=== PATIENT | female | born 1950 | race Caucasian/White ===

== ENCOUNTER → 2018-01-27 | Outpatient (CLI) | payer MEDICARE | END | disposition home or self-care (01) | LOC: KCIC MRI 13:03 | DX: M16.11 Unilateral primary osteoarthritis, right hip (principal) | CPT/HCPCS: 73718 ==

== ENCOUNTER → 2019-03-10 | Outpatient (CLI) | payer MEDICARE ==
[~2019-03-10] MED LIST: ALEN70TA6 PO; ALPR0.5T PO; ARIP10TA9 PO; BUPR150T15 PO; FLUT1DIS3 IH; LEVO75TA5 PO; LINZESS145 MCG PO; PROP40TA PO; SIMV20TA3 PO; VERA240C2 PO
--- NOTE | 2019-03-10 16:45 | KCIC ---
MRI of the lumbar spine without contrast 03/10/2019 CLINICAL HISTORY: Low back pain which radiates down both legs for 6 months. TECHNIQUE: Unenhanced T1-weighted and T2-weighted sagittal and axial and inversion recovery sagittal images of the lumbar spine were obtained. FINDINGS: Mild S-shaped curvature of the thoracolumbar spine is seen. Degenerative signal changes are seen involving all of the disks of the lumbar spine. Degenerative signal changes are seen within the marrow surrounding these discs. The conus medullaris is normal morphology, position, and signal characteristics. Rounded high signal intensity lesions are seen on the T2-weighted images which measure 8 mm to 3 cm in size. They likely represent cysts. At the L1-2, L2-3 and L3-4 disc spaces there are minimal to mild generalized disc bulges. Degenerative changes are seen involving the facet joints bilaterally. There is mild ligamentum flavum hypertrophy bilaterally. These findings when combined do not result in significant central spinal canal or neural foraminal stenosis. At the L4-5 disc space there is a mild to moderate generalized disc bulge. Degenerative changes are seen involving the facet joints bilaterally. There is mild ligamentum flavum hypertrophy bilaterally. There are small facet joint effusions. These findings when combined result in mild to moderate central spinal canal stenosis. No neural foraminal stenosis is seen. At the L5-S1 disc space there is a mild generalized disc bulge. Superimposed this disc bulge is a focal central disc protrusion. This measures 3 mm in AP diameter. Degenerative changes are seen involving the facet joints bilaterally. There is mild to moderate ligamentum flavum hypertrophy bilaterally. These findings when combined result in mild central spinal canal stenosis. No neural foraminal stenosis is seen. IMPRESSION: The changes of degenerative disc disease are seen throughout the lumbar spine. These findings result in mild to moderate central spinal canal stenosis at L4-5 and mild central spinal canal stenosis at L5-S1. No neural foraminal stenosis is seen. Electronically signed by: Ras Ace MD (03/10/2019 4:42 PM) [id number]
== END | disposition home or self-care (01) ==
LOC: KCIC MRI 15:13
PROVIDERS: ATTEND Physician Assistant
DX: M51.36 Other intervertebral disc degeneration, lumbar region (principal); M48.07 Spinal stenosis, lumbosacral region; M51.27 Other intervertebral disc displacement, lumbosacral region; M25.48 Effusion, other site
CPT/HCPCS: 72148

== ENCOUNTER → 2019-09-13 | Outpatient (CLI) | payer MEDICARE ==
[~2019-09-13] MED LIST changes: +CELE200C PO; +GABA300C18 PO; +PRIM50TA24 PO; +SIMV20TA18 PO; -SIMV20TA3 PO; +TRAM50TA PO
--- NOTE | 2019-09-13 13:13 | PAIN ---
DATE OF SERVICE: 09/13/2019 INITIAL CONSULTATION FOR PAIN CLINIC CHIEF COMPLAINT: Low back and left lower extremity pain. HISTORY OF PRESENT ILLNESS: This is a 69-year-old female who presents with history of pain in the low back and left lower extremity, posterior gluteus, posterior thigh, lateral thigh and into the posterior knee on the left side. The patient reports that it has been on and off for about 2-3 years, not as a result of any specific injury or action that she is aware of, but it is gradually increasing with time and walking, worse with activity, standing and changing positions, walking. The patient reports it awakens her from sleep about once a night, does not affect her bowel or bladder control, but does affect her ability to walk. She is not using any assistive devices, however, such as canes or walkers. The patient has not had any formal therapies currently. She has been doing some stretching on her own at home, but no formal physical therapy, no counseling, chiropractic treatment, exercise or other treatments. The patient did see a neurosurgeon who is recommending conservative treatment at this time. The patient describes the pain as throbbing, tingling, radiating, intermittent in intensity, but always present in low back, left posterior gluteus, posterior thigh. The patient has taken Neurontin, which reported did decrease the pain mildly, but causes her to be very drowsy and groggy. The patient rates her disability rating from 0-10, 10 being the worst, is an 8 with family home responsibilities and occupation, 6 with recreation and social activity, 3 with self-care and 7 with life support activities, especially sleeping. The patient did have MRI scan of the lumbar spine showing degenerative disk changes at L4-L5 and L5-S1 with a focal central disk protrusion, superimposed on disk bulge at L5-S1 with moderate ligamentum flavum hypertrophy bilaterally resulting in mild central spinal canal stenosis. L4-L5 shows [id number] central spinal canal stenosis with moderate degenerative disk bulge. PAST MEDICAL HISTORY: Significant for hearing loss, shortness of breath, COPD, quit smoking 10 years ago, hypertension, arthritis. PREVIOUS SURGERIES: Include cataract extractions, cholecystectomy, breast biopsy and tonsillectomy. CURRENT MEDICATIONS: Include simvastatin, Linzess, gabapentin, Celebrex, Mysoline, tramadol, Advair inhaler, Wellbutrin, and levothyroxine. ALLERGIES: THE PATIENT IS ALLERGIC TO CODEINE. FAMILY HISTORY: Significant for cancers. SOCIAL HISTORY: The patient drinks alcohol about 4 cans a month on average. Quit smoking 10 years ago. Does not use any illegal, illicit or recreational drugs. She is , lives with her spouse locally in [place], [place]. Reports she is currently retired. REVIEW OF SYSTEMS: The patient's review of systems is positive for those items mentioned in history of present illness. All systems reviewed and otherwise negative. It is complete, full and well documented on the patient's chart. PHYSICAL EXAMINATION: VITAL SIGNS: The patient's blood pressure is 140/81, pulse is 80, respirations 18, temperature 97.2 degrees Fahrenheit, height is 5 feet 2 inches, weight 175 pounds. GENERAL: The patient is awake, alert, oriented, appropriate, very pleasant demeanor. HEENT: Exam shows normocephalic, atraumatic. Extraocular movements are intact and symmetrical. Oral cavity: Mucous membranes moist and pink. Dentition is intact. NECK: Shows anterior throat supple without palpable lymphadenopathy noted. Swallow reflex symmetrical. CHEST: Shows normal on inspection. Breath sounds are clear bilaterally. HEART: Shows S1, S2 clear. No murmurs auscultated. ABDOMEN: Soft, nontender, nondistended. No palpable organomegaly is noted. No rebound or guarding demonstrated. BACK: Shows spine grossly in the midline. Normal-appearing thoracic kyphosis and lumbar lordotic curvature slightly flattened. Lumbar paraspinous muscle shows symmetrical on inspection, with palpation shows some moderate tenderness diffusely in the middle and lower distribution of paraspinous muscles only, but without radiation. No tenderness over the spinous processes, sacrum or sacroiliac regions. The patient has good rotational motion of lumbar spine, both laterally greater than 10 degrees right and left as well as extension greater than 10 degrees, forward flexion 45 degrees without significant pain reported. EXTREMITIES: The patient's lower extremities show deep tendon reflexes 1+ in the patellar and tendo-calcaneus tendons. Motor exam is approximately 4 on a scale of 5 with left dorsiflexion, extension, 5/5 on the right, quadriceps and hamstring flexion likewise 4/5 left, 5/5 on the right. Peripheral pulses are 1+ in posterior tibia. No peripheral edema is noted. Lower extremities are warm and dry to touch, equal in color and appearance. Straight leg raise noted to be negative for reproduction of radicular symptoms bilaterally. Babak's maneuver is positive on the right, but negative on the left. Gaenslen's maneuvers are negative bilaterally. The patient is able to stand. It is difficult to turn and stand on her toes, loses balance easily, but is walking with a slight favoring gait favoring the left lower extremity, but only mildly, not using any assistive devices to ambulate. IMPRESSION: 1. This is a 69-year-old female with a 2-3 year history of increasing pain in the low back, left lower extremity in a radicular fashion. 2. MRI scan of lumbar spine as noted. 3. Chronic obstructive pulmonary disease. 4. Hypertension. 5. Arthritis. PLAN: Options were discussed with the patient including conservative medical managements, physical therapies and interventional techniques. She would like to pursue interventional techniques. We discussed a lumbar epidural steroid injection using description as well as anatomical models to describe the procedure. The patient has family in town; however, they are leaving later today. She would like to get home and see them before they go without having a procedure today. We will reschedule this for approximately 1 week from now and discuss the procedure more on her return. The patient understands and we will reschedule with plan on lumbar epidural steroid injection in approximately 1 week. BAY COOK MD DR: MONIQUE/deven JOB#: [id number] / [id number] ALISA Dallas MD
== END | disposition home or self-care (01) ==
LOC: PNCL 10:32
PROVIDERS: ATTEND Anesthesiology
DX: M54.5 Low back pain (principal); I10 Essential (primary) hypertension; J44.9 Chronic obstructive pulmonary disease, unspecified; M19.90 Unspecified osteoarthritis, unspecified site
CPT/HCPCS: G0463

== ENCOUNTER → 2019-09-27 | Outpatient (CLI) | payer MEDICARE ==
[~2019-09-27] MED LIST changes: +IOHEXOL 180 MG/ML 10 ML VIAL. ONE; +methylPREDNISolone ACETATE 40 MG/ML VIAL. ONE; +methylPREDNISolone ACETATE 80 MG/ML VIAL. ONE
--- NOTE | 2019-09-27 22:14 | PAIN ---
DATE OF SERVICE: 09/27/2019 PROGRESS NOTE FOR PAIN CLINIC DIAGNOSES: Lumbar radiculopathy with lumbar degenerative disk disease and lumbar spinal stenosis. HISTORY OF PRESENT ILLNESS: The patient is a 69-year-old female who returns for followup status post initial evaluation and rescheduled for a lumbar epidural steroid injection today. The patient reports still significant pain in low back, left lower extremity, posterior gluteus, posterior thigh, posterior calf, as it was worse with walking, standing, changing positions, better with sitting or resting. Does not awaken her from sleep at night. The patient reports no new motor or sensory deficits, no new changes. Rates her pain as an 8 on a scale of 10 at its worst over the past week, 7 on average, 4 at its least and is a 7 today. The patient reports it is tight, shooting, burning, on and off in intensity, worse with activity. The patient reports no new motor or sensory deficits, no new bowel or bladder incontinence or other complaints. PHYSICAL EXAMINATION: VITAL SIGNS: The patient's blood pressure is 181/111, pulse 85, respirations 18, temperature 97.5 degrees Fahrenheit, height 5 feet 2 inches, weight is 176 pounds. GENERAL: The patient is awake, alert, oriented, appropriate, very pleasant demeanor. HEENT: Shows normocephalic, atraumatic. Extraocular movements are intact and symmetrical. Oral cavity shows mucous membranes moist and pink. Dentition is intact. NECK: Shows anterior throat supple without palpable lymphadenopathy noted. Swallow reflex symmetrical. CHEST: Shows normal on inspection. Breath sounds clear to auscultation bilaterally. HEART: Shows S1, S2 clear. No murmurs auscultated. ABDOMEN: Soft, nontender, nondistended. No palpable organomegaly is noted. No rebound or guarding demonstrated. BACK: Shows spine grossly in the midline. Normal thoracic kyphosis, some minor flattening of lumbar lordotic curvature. Lumbar paraspinous muscle shows symmetrical on inspection, on palpation shows some moderate tenderness diffusely bilaterally going diffusely without significant radiation. EXTREMITIES: The patient's lower extremities show deep tendon reflexes at 1+ in the patellar and tendo calcaneus tendons are equal. Motor exam is approximately 4 on a scale 5 on the left and 5/5 on the right with dorsiflexion and extension. The patient's peripheral pulses are 1+ posterior tibia. No peripheral edema is noted bilaterally. Options were discussed with the patient. The patient's old chart was reviewed as her current medication regimen updated. Current review of systems updated today as well. We will proceed with a first in the series of lumbar epidural steroid injection today with fluoroscopic guidance. Risks were again discussed including, but not limited to bleeding, infection, possibility of epidural hematoma, subsequent neurological compromise, dural puncture, headaches, spinal cord and/or nerve damage, side effects of steroid medication and poor results regarding pain control. The patient understands and wished to proceed. The patient will return to clinic in approximately 2 weeks for followup, was counseled on return appointment, activity level and side effects to be aware of. DIAGNOSES: Lumbar radiculopathy with lumbar degenerative disk disease and lumbar spinal stenosis. PROCEDURE: Lumbar epidural steroid injection, translaminar approach L5-S1 level using C-arm fluoroscopic guidance under sterile prep and drape using local anesthetic. MEDICATION INJECTED: A total of 120 mg Depo-Medrol plus 10 mL of preservative-free normal saline and 2 mL of contrast. CONDITION AT DISCHARGE: Stable. The patient tolerated the procedure well, had no complications. BAY COOK MD DR: MONIQUE/deven JOB#: [id number] / [id number]
== END ==
LOC: PNCL 09:52
PROVIDERS: ATTEND Anesthesiology
DX: M51.16 Intervertebral disc disorders with radiculopathy, lumbar region (principal); M48.061 Spinal stenosis, lumbar region without neurogenic claudication
CPT/HCPCS: 62323; J1030; J1040; Q9965

== ENCOUNTER → 2020-08-01 | Outpatient (CLI) | payer MEDICARE ==
[~2020-08-01] MED LIST changes: -ALEN70TA6 PO; +ALEN70TA60 PO; -IOHEXOL 180 MG/ML 10 ML VIAL. ONE; -methylPREDNISolone ACETATE 40 MG/ML VIAL. ONE; -methylPREDNISolone ACETATE 80 MG/ML VIAL. ONE
--- NOTE | 2020-08-01 15:55 | KCIC ---
INDICATION: Reason: ACUTE KIDNEY FAILURE / Spl. Instructions: / History: COMPARISON: None. TECHNIQUE: Grayscale and color ultrasound images obtained of the bilateral kidneys and bladder. FINDINGS: Right Kidney: 85 mm. No hydronephrosis. Echogenic cortex. Septated cystic lesion 29 x 32 mm. Left Kidney: 103 mm. No hydronephrosis. Echogenic cortex. There is a couple of hypoechoic lesions measuring 16 x 15 mm and 15 x 12 mm. Bladder: 81 cc prevoid. Bilateral ureter jets seen. IMPRESSION: * Echogenic kidneys which can be seen with chronic medical renal disease. * No hydronephrosis. * Bilateral cystic lesions the kidneys with one of the right appearing septated. On the left there is some low-level internal echoes which could be artifactual or secondary to some internal complexity. Follow-up could be obtained in a few months to ensure no growth given the complexity. Electronically signed by: Simeon Moreno MD (08/01/2020 3:52 PM) [id number]
== END ==
LOC: KCIC US 11:03
PROVIDERS: ATTEND Internal Medicine Nephrology
DX: N17.9 Acute kidney failure, unspecified (principal); N28.89 Other specified disorders of kidney and ureter
CPT/HCPCS: 76770

== ENCOUNTER → 2021-01-25 | Outpatient (CLI) | payer MEDICARE ==
[~2021-01-25] MED LIST changes: -ALEN70TA60 PO; +ALEN70TA71 PO
--- NOTE | 2021-01-25 15:51 | KCIC ---
Renal sonography Clinical indications: Follow-up of complex renal cyst. COMPARISON: August 01, 2020. FINDINGS: The longitudinal and AP and transverse dimensions of the right kidney are 10.7 cm and 5.5 c m and 4.1 cm respectively. There is a cyst of the upper pole of the right kidney measuring 37 mm in g reatest dimension. A thin septation is seen anteriorly. No intramural nodularity seen. This cyst sonia ured 32 mm previously. The longitudinal and AP and transverse dimensions of the left kidney are 10.5 cm and 5.2 cm and 4.6 cm respectively. There is a small cyst seen medially measuring 18 mm. This cyst appears simple. There is a small cyst more laterally measuring 11 mm. Mild internal echoes are seen within this cyst. On the previous study, the cysts measured 15 mm and 16 mm respectively. No hydronep hrosis is seen on either side. There is an increase in cortical echogenicity of both kidneys which ma y be seen with medical renal disease. Urinary bladder is mildly distended. IMPRESSION: No hydronephrosis. Increase in cortical echogenicity of both kidneys which may be seen with medical renal disease. Bilateral renal cysts. Bosniak classification 1 and 2. No further follow-up is needed. Electronically signed by: Sherif Cantrell MD (01/25/2021 3:49 PM) [id number]
== END ==
LOC: KCIC US 14:33
PROVIDERS: ATTEND Internal Medicine Nephrology
DX: N28.1 Cyst of kidney, acquired (principal)
CPT/HCPCS: 76770